=== PATIENT | male | born 1955 ===

== ENCOUNTER → 2018-02-01 | Outpatient (CLI) | payer OTHER ==
[~2018-02-01] MED LIST: AMIO200 PO; AMLO10 PO; ATEN100 PO; ATOR20 PO; AZIT500 PO; CALC.25 PO; CARV3.125 PO; CHLO25B PO; CINA30; CLOBET30L TOP; CLON.3TP TOP; CYCL10 PO; DOCU100 PO; DOXE50 PO; FISH1000 PO; FURO40 PO; Ferrous Sulfat325 M2 PO; HYDACE10B PO; LOSA25 PO; MAGOXI400 PO; Nephro-Vite RX1 EA PO; OXYC5 PO; POTCHL10ER PO; RANI150 PO; ROPI1 PO; SEVEC800 PO; SILD25T PO; TERA5 PO; ZOLP5 PO
[2018-02-01 12:35] LABS: LDL/HDL RATIO 0.9
[2018-02-01 12:36] LABS: Alanine Aminotransfer (ALT/SGP 26 U/L (12-78); Albumin, Blood 3.5 g/dL (3.4-5.0); Albumin/Globulin Ratio 0.9 (0.8-1.8); Alk Phos 86 U/L (50-136); Aspartate Aminotrans (AST/SGOT 17 U/L (12-37); Bilirubin, Direct <0.1 mg/dL (0.0-0.3); CHOL/HDL RATIO 3.1; Cholesterol 107 mg/dL (50-200); HDL Cholesterol 35 mg/dL (>39); Low Density Lipoprotein Chol 32 mg/dL (0-110); Total Protein, Blood 7.5 g/dL (6.4-8.2); Triglycerides 199 mg/dL (30-160); Very Low Density Lipoprot Chol 39 mg/dL (6-32)
[2018-02-01 13:01] LABS: Bilirubin, Indirect Unable to Calculate mg/dL (0.1-0.7); Bilirubin, Total 0.4 mg/dL (0.1-1.0)
== END | disposition home or self-care (01) ==
LOC: LAB DAV 09:46
PROVIDERS: Internal Medicine Nephrology
DX: E78.5 Hyperlipidemia, unspecified (principal)
CPT/HCPCS: 80061; 80076

== ENCOUNTER 2019-06-16 09:37 | Observation (INO) | payer OTHER ==
[~2019-06-16] VITALS: Ht 167.6 cm; Wt 83.9 kg
[~2019-06-16 09:37] MED LIST changes: -ATOR20 PO; -CARV3.125 PO; +CARV6.25 PO; +Lipitor20 MG PO; -Nephro-Vite RX1 EA PO; -RANI150 PO; +RENAL VITAMIN0.8 MG PO; +ZOLP10 PO; -ZOLP5 PO; +Zantac150 MG PO
[2019-06-16 10:27] LABS: BASOPHILS ABSOLUTE AUTO 0.04 K/mm3 (0.00-0.23); BASOPHILS PERCENT AUTO 1 % (0-2); EOSINOPHILS ABSOLUTE AUTO 0.21 K/mm3 (0.00-0.68); EOSINOPHILS PERCENT AUTO 3 % (0-6); Hemoglobin 11.9 g/dL (13.5-17.5); IMMATURE GRAN ABSOLUTE AUTO 0.02 K/mm3 (0.00-0.10); IMMATURE GRAN PERCENT AUTO 0 % (0-1); LYMPHOCYTES ABSOLUTE AUTO 1.32 K/mm3 (0.84-5.20); LYMPHOCYTES PERCENT AUTO 19 % (21-46); MONOCYTES ABSOLUTE AUTO 0.74 K/mm3 (0.16-1.47); MONOCYTES PERCENT AUTO 11 % (4-13); Mean Corpuscular HGB 32.1 pg (26.0-34.0); Mean Corpuscular HGB Conc 31.3 g/dL (31.5-36.5); Mean Corpuscular Volume 102 fL (80-100); Mean Platelet Volume 9.9 fL (9.1-12.4); NEUTROPHILS ABSOLUTE AUTO 4.49 K/mm3 (1.96-9.15); NEUTROPHILS PERCENT AUTO 66 % (41-73); Platelet Count 171 K/mm3 (150-400); RDW Coefficient Variation 15.6 % (11.7-14.2); RDW Standard Deviation 58.8 fL (35.1-46.3); Red Blood Cell Count 3.71 M/mm3 (4.30-5.90); White Blood Cell Count 6.82 K/mm3 (4.00-11.30)
[2019-06-16 10:52] LABS: Troponin I 0.029 ng/mL (0.000-0.040)
[2019-06-16 10:55] LABS: Albumin, Blood 3.5 g/dL (3.4-5.0); Albumin/Globulin Ratio 0.9 (0.8-1.8); Bilirubin, Total 0.7 mg/dL (0.1-1.0); Bun/Creatinine Ratio 8.6 (12.0-20.0); Creatinine, Blood 9.08 mg/dL (0.60-1.20); Globulin, Blood 4.1 g/dL (2.2-4.0); Potassium, Blood 6.5 mmol/L (3.5-5.5); Total Protein, Blood 7.6 g/dL (6.4-8.2)
[2019-06-16] MEDS ORDERED: ALBU90OI61 INH (13:03)
[2019-06-16] MEDS ORDERED: ALPR.5 PO (13:04)
[2019-06-16] MEDS ORDERED: Aspirin EC81 MG PO (13:04)
[2019-06-16] MEDS ORDERED: Flonase 0.05% N16 GM (13:06)
[2019-06-16] MEDS ORDERED: ANTI-ITCH LOTI222 ML TOP (13:06)
[2019-06-16] MEDS ORDERED: MIDO5 PO (13:08)
[2019-06-16] MEDS ORDERED: ONDA4 PO (13:09)
[2019-06-16] MEDS ORDERED: Mirapex0.25 MG PO (13:09)
[2019-06-16] MEDS ORDERED: Vitamin B-650 MG PO (13:09)
[2019-06-16] MEDS ORDERED: Cialis5 MG PO (13:11)
[2019-06-16] MEDS ORDERED: GABA300 PO (13:52)
[2019-06-16 15:57] LABS: Bun/Creatinine Ratio 8.8 (12.0-20.0); Calcium, Blood 8.4 mg/dL (8.5-10.1); Creatinine, Blood 9.58 mg/dL (0.60-1.20); Potassium, Blood 5.7 mmol/L (3.5-5.5)
--- NOTE | 2019-06-16 16:59 | NUR ---
SHIFT SUMMARY- PT NEW ADMIT THIS AFTERNOON. PT AXO X4. PT DENIES PAIN. DENIES SOB. RESP E/U ON RA. DENIES N/V. NSR AT 85 PER PCU FLOOR WORKER TRANSFER BAY. INDEPENDENT IN THE ROOM. NOTIFIED DR. HANEY OF PT'S BP OF 164/104 AND THAT PT REPORTS HE HAS NOT TAKEN ANY OF HIS MEDS TODAY. MEDS GIVEN PER EMAR. WILL CONTINUE TO MONITOR. NOTIFIED DR. HANEY PT REPORTS HE TAKES PO 600MG GABAPENTIN BID AND 0.25 MG PO MIRAPEX BID AND IT IS NOT ON PT'S EMAR. DR. HANEY SAID OK TO ORDER PT'S HOME MEDS. INDEPENDENT IN THE ROOM. NO OTHER SIGNIFICANT CHANGES THIS SHIFT.
[2019-06-17 05:32] LABS: BASOPHILS ABSOLUTE AUTO 0.05 K/mm3 (0.00-0.23); BASOPHILS PERCENT AUTO 1 % (0-2); EOSINOPHILS ABSOLUTE AUTO 0.21 K/mm3 (0.00-0.68); EOSINOPHILS PERCENT AUTO 4 % (0-6); Hematocrit 34.2 % (37.0-53.0); Hemoglobin 10.7 g/dL (13.5-17.5); IMMATURE GRAN ABSOLUTE AUTO 0.02 K/mm3 (0.00-0.10); IMMATURE GRAN PERCENT AUTO 0 % (0-1); LYMPHOCYTES ABSOLUTE AUTO 1.27 K/mm3 (0.84-5.20); LYMPHOCYTES PERCENT AUTO 23 % (21-46); MONOCYTES ABSOLUTE AUTO 0.46 K/mm3 (0.16-1.47); MONOCYTES PERCENT AUTO 8 % (4-13); Mean Corpuscular HGB 31.5 pg (26.0-34.0); Mean Corpuscular HGB Conc 31.3 g/dL (31.5-36.5); Mean Corpuscular Volume 101 fL (80-100); Mean Platelet Volume 10.2 fL (9.1-12.4); NEUTROPHILS ABSOLUTE AUTO 3.55 K/mm3 (1.96-9.15); NEUTROPHILS PERCENT AUTO 64 % (41-73); Platelet Count 188 K/mm3 (150-400); RDW Coefficient Variation 15.3 % (11.7-14.2); RDW Standard Deviation 56.7 fL (35.1-46.3); White Blood Cell Count 5.56 K/mm3 (4.00-11.30)
[2019-06-17 05:57] LABS: Magnesium, Blood 2.6 mg/dL (1.6-2.4)
[2019-06-17 06:05] LABS: Albumin, Blood 3.3 g/dL (3.4-5.0); Albumin/Globulin Ratio 0.8 (0.8-1.8); Bilirubin, Total 0.7 mg/dL (0.1-1.0); Bun/Creatinine Ratio 9.4 (12.0-20.0); Creatinine, Blood 10.4 mg/dL (0.60-1.20); Globulin, Blood 3.9 g/dL (2.2-4.0); Potassium, Blood 5.9 mmol/L (3.5-5.5); Total Protein, Blood 7.2 g/dL (6.4-8.2)
--- NOTE | 2019-06-17 06:36 | NUR ---
SHIFT SUMMARY: PATIENT WAS VERY PLEASANT AND COOPERATIVE. HE DID NOT SLEEP IN FACT STAYED UP PLAYING ON HIS PHONE ALL NIGHT. HE HAD NO COMPLAINTS OR CHANGES. MEDS WERE GIVEN PER EMAR. DR. BATEMAN CAME TO VISIT HIM AROUND MIDNIGHT. HE ORDERED TWO NEW MEDS WHICH WERE GIVEN STAT, NO CHANGES AFTERWARDS. PATIENTS DOG DID WELL ALL NIGHT WELL, NO PROBLEMS. WILL REPORT TO DAY SHIFT RN.
--- NOTE | 2019-06-17 08:00 | NUR ---
PT PLEASANT COOP A/O. DENIES PAIN. READY TO GO FOR DAYSURG TO GET FISTULA UNBLOCKED. FISTULA IN UPPER ARM, PT STATES CLOTTED. 5 YRS PRIOR. NO TRILL. FUSTULA IN LOW ARM IS ONE DR TO UNBLOCK. NO TRILL NOTED. H/R REG, NO MURMER NOTED. PER TELE S TACH AT 104. LUNGS CLEAR, RESP EASY, UNLABORED. ON R/A. BT X4 LAST BM YEST. PT OLIGURIC. ON DIALYSIS. IS INDEPENDANT IN ROOM. BED IN LOW POSITION, CALL LITE IN REACH, CALLS APPROP. PT HAS GUIDE DOG IN ROOM ON BED.
--- NOTE | 2019-06-17 10:00 | NUR ---
CALLED DR CERVANTES. HE DR TO DO FISTULA DECLOTTING. STATES PROB 2-4PM TODAY. KEEP NPO. RELAYED TO PT.
--- NOTE | 2019-06-17 18:09 | NUR ---
1718 PT OUT TO SURG FOR FISTULA. CALLED JERE BERNAL RN AT [phone]
--- NOTE | 2019-06-17 18:39 | NUR ---
PT HAS BEEN WAITING FOR DAY SURG TO DECLOT THE FISTULA ALL DAY. WENT TO [facility] AT 1715. JERE METABOLIC SPECIALIST CALLED AND ADVISED WHEN LEFT. HE TO COME GIVE PT DIALYSIS UPON HIS RETURN. NO OTHER CONCERNS AT THIS TIME.
--- NOTE | 2019-06-17 19:52 | NUR ---
HD 1:1 NON-ROUTINE HOURS TREATMENT DUE TO LATE AFTERNOON THROMBECTOMY OF CLOTTED AV GRAFT AND CONCURRENT 5.9 K+.
[2019-06-18 05:09] LABS: Hemoglobin 10.4 g/dL (13.5-17.5)
[2019-06-18 05:31] LABS: Magnesium, Blood 2.5 mg/dL (1.6-2.4)
[2019-06-18 05:44] LABS: Albumin, Blood 3.1 g/dL (3.4-5.0); Anion Gap 10 mmol/L (6-16); Blood Urea Nitrogen 77 mg/dL (8-24); Bun/Creatinine Ratio 8.2 (12.0-20.0); CO2, Blood 27 mmol/L (21-32); Calcium, Blood 8.3 mg/dL (8.5-10.1); Chloride, Blood 102 mmol/L (98-108); Creatinine, Blood 9.36 mg/dL (0.60-1.20); Glomerular Filtration Rate 6 (60-); Glucose, Blood 93 mg/dL (70-99); Phosphorus, Blood 5.4 mg/dL (2.5-4.9); Sodium, Blood 139 mmol/L (136-145)
--- NOTE | 2019-06-18 07:35 | NUR ---
SHIFT SUMMARY: FAB GOT BACK AT SHIFT CHANGE FROM HIS SURGERY. THEY WERE ABLE TO GET BOTH GRAFTS UNPLUGGED. PROCEDURE WAS GOOD AND HIS RECOVERY WAS QUICK. JERE FROM [facility] WAS PRESENT ON ARRIVAL TO ROOM AND GOT HIM STARTED ON DIALYSIS. HE WAS GIVEN HIS DINNER AND LUNCH TRAY AT WHICH HE ATE ALL OF IT. HIS BLOOD PRESSURE IMPROVED THROUGHOUT THE DIALYSIS TREATMENT. HE HAD DIALYSIS FOR 21/2 HOURS WITH NO PROBLEMS. JERE REMOVED THE STITCHES FROM HIS GRAFT AND COVERED WITH STERI STRIP PER OR ORDERS. MEDS WERE GIVEN PER EMAR. HE HAD NO ACUTE CHANGES AFTERWARDS AND SLEPT WELL AFTERWARDS. VS REMAINED STABLE. GAVE REPORT TO DAY SHIFT RN.
[2019-06-18] MEDS ORDERED: SEVEC800 PO (11:38)
--- NOTE | 2019-06-18 11:57 | NUR ---
DISCHARGE- DISCHARGE INSTRUCTIONS REVIEWED WITH PT. IV DC'D INTACT. PT REQUESTING [facility] UPON DISCHARGE. [facility], [facility] MICHAEL KLEIN, [place] WILL CALL TO SCHEDULE A F/U APPOINTMENT. [facility] NESTOR CONKLIN AUTHORIZED BY DIRECTOR WORKFORCE MANAGEMENT JEREMIAS DUE TO PT'S CAR BEING AT [facility]. PT TO D/C TO [facility] FOR DIALYSIS TODAY, CONFIRMED WITH [facility] PT HAS A CHAIR TO BE DIALYZED. AWAITING TAXI AT THIS TIME.
--- NOTE | 2019-06-18 12:10 | NUR ---
PT D/C'S AT 1210, ESCORTED OUT VIA W/C TO [facility] TO D/C TO [facility].
[2019-06-25] MEDS ORDERED: Bumetanide2 MG PO (15:41)
[2019-06-26] MEDS ORDERED: MIDO5 (11:32)
== END 2019-06-18 12:11 | disposition home health service (06) ==
LOC: ER 09:37 → MEDS 09:38
PROVIDERS: Emergency Medicine; Internal Medicine Nephrology; ADMIT Internal Medicine
DX: T82.868A Thrombosis due to vascular prosthetic devices, implants and grafts, initial encounter (principal); I13.2 Hypertensive heart and chronic kidney disease with heart failure and with stage 5 chronic kidney disease, or end stage renal disease; N18.6 End stage renal disease; E78.5 Hyperlipidemia, unspecified; G89.29 Other chronic pain; E87.5 Hyperkalemia; R55 Syncope and collapse; G47.00 Insomnia, unspecified; Z99.2 Dependence on renal dialysis
CPT/HCPCS: 36415; 36905; 71045; 80048; 80053; 80069; 82947; 83735; 84132; 84484; 85014; 85018; 85025; 93005; 93010; 96372; 96374; 96375; 97116; 97162; 99152; 99153; 99285-25; C1725; C1757; C1769; C1887; C1894; G0257; G0378; J0610; J1644; J1815; J2250; J3010; J7030; J7040; J7799; Q9967

== ENCOUNTER → 2019-08-20 | Outpatient (CLI) | payer SELFPAY ==
[~2019-08-20] MED LIST changes: +ALBU90OI61 INH; +ALPR.5 PO; +ANTI-ITCH LOTI222 ML TOP; +Aspirin EC81 MG PO; +Bumetanide2 MG PO; +Cialis5 MG PO; +Flonase 0.05% N16 GM; +GABA300 PO; +MIDO5; +MIDO5 PO; +Mirapex0.25 MG PO; +ONDA4 PO; +Vitamin B-650 MG PO
== END | disposition home or self-care (01) ==
LOC: LAB DAV 07:55
DX: M10.9 Gout, unspecified (principal)
CPT/HCPCS: 84550

== ENCOUNTER → 2020-01-28 | Outpatient (CLI) | payer OTHER ==
[~2020-01-28] MED LIST changes: +SOMA350 MG PO; +Sensipar90 MG PO
[2020-01-28 08:28] LABS: BASOPHILS ABSOLUTE AUTO 0.04 K/mm3 (0.00-0.23); BASOPHILS PERCENT AUTO 1 % (0-2); EOSINOPHILS ABSOLUTE AUTO 0.21 K/mm3 (0.00-0.68); EOSINOPHILS PERCENT AUTO 3 % (0-6); Hematocrit 32.8 % (37.0-53.0); Hemoglobin 10.3 g/dL (13.5-17.5); IMMATURE GRAN ABSOLUTE AUTO 0.02 K/mm3 (0.00-0.10); IMMATURE GRAN PERCENT AUTO 0 % (0-1); LYMPHOCYTES ABSOLUTE AUTO 1.52 K/mm3 (0.84-5.20); LYMPHOCYTES PERCENT AUTO 22 % (21-46); MONOCYTES ABSOLUTE AUTO 0.56 K/mm3 (0.16-1.47); MONOCYTES PERCENT AUTO 8 % (4-13); Mean Corpuscular HGB 31.4 pg (26.0-34.0); Mean Corpuscular HGB Conc 31.4 g/dL (31.5-36.5); Mean Corpuscular Volume 100 fL (80-100); Mean Platelet Volume 9.8 fL (9.1-12.4); NEUTROPHILS ABSOLUTE AUTO 4.46 K/mm3 (1.96-9.15); NEUTROPHILS PERCENT AUTO 66 % (41-73); Platelet Count 170 K/mm3 (150-400); RDW Coefficient Variation 14.8 % (11.7-14.2); RDW Standard Deviation 53.7 fL (35.1-46.3); Red Blood Cell Count 3.28 M/mm3 (4.30-5.90); White Blood Cell Count 6.81 K/mm3 (4.00-11.30)
[2020-01-28 08:40] LABS: International Normalized Ratio 0.99; Prothrombin Time Results 10.6 Sec (9.7-11.5)
[2020-01-28 09:10] LABS: Bun/Creatinine Ratio 5.9 (12.0-20.0); Calcium, Blood 8.6 mg/dL (8.5-10.1); Creatinine, Blood 10.1 mg/dL (0.60-1.20); Potassium, Blood 4.6 mmol/L (3.5-5.5)
== END | disposition home or self-care (01) ==
LOC: LAB 07:00 → LAB SHORT 07:00
PROVIDERS: Radiology Diagnostic Radiology
DX: Z01.818 Encounter for other preprocedural examination (principal); I70.213 Atherosclerosis of native arteries of extremities with intermittent claudication, bilateral legs; I10 Essential (primary) hypertension
CPT/HCPCS: 80048; 85025; 85610

== ENCOUNTER 2020-01-29 06:13 | Day surgery (SDC) | payer OTHER ==
[~2020-01-29] VITALS: Ht 167.6 cm; Wt 100.0 kg
--- NOTE | 2020-01-29 10:35 | NUR ---
Pt received from [facility]und[facility] MALLOY pt is awake with service dog Stew on his bed. Pt repostion for comfort slight raise in right groin site due to previous hematoma. Pt is cooperative. Pt reposition on right side for comfort.
--- NOTE | 2020-01-29 11:40 | NUR ---
Pt medicated with xanax for slight anxiety of 3 out of 5. Orders received from Dr. Werner pt right femoral site normal pt starting to have back pain. Pt has been reposition by staff for comfort. Stew service dog on bed with patient.
--- NOTE | 2020-01-29 11:57 | NUR ---
Pt medicated with rx for pain lower back of 04/28. Orders received from doctor Alphonso for pain parameter. Pt finished breakfast he has a hl iv of normal saline.
--- NOTE | 2020-01-29 13:48 | NUR ---
Pt up marko well. Pt stable in recliner with Stew the service dog waiting for ride at 1500. Pt denies pain at this time. Right groin dressing with a spot of blood no change in site. Pt assisted in dressing. Pt reviewed all discharge instructions. Pt will have second procedure in February. Sbar to Rhiannon Oviedo RN. Pt in holding pattern for ride.
--- NOTE | 2020-01-29 13:59 | NUR ---
Lunch served, pt left fistula patent good bruit and thril.
--- NOTE | 2020-01-29 15:13 | NUR ---
1500 PATIENT HAS BEEN WAITING ON RIDE TO ARRIVE. PATIENT TAKEN BY WHEELCHAIR TO THE HOSPITAL ENTRANCE AND RIDE PICKED HIMUP THERE TO TAKE HIM HOME. DISCHARGE INSTRUCTIONS IN HAND AND ALL BELONGINGS GATHERED AND TAKEN WITH PATIENT. DISCHARGED HOME.
== END 2020-01-29 16:31 | disposition home or self-care (01) ==
LOC: MHTC 06:13
DX: I70.213 Atherosclerosis of native arteries of extremities with intermittent claudication, bilateral legs (principal); I10 Essential (primary) hypertension; E78.5 Hyperlipidemia, unspecified; F32.9 Major depressive disorder, single episode, unspecified; I25.10 Atherosclerotic heart disease of native coronary artery without angina pectoris; F41.9 Anxiety disorder, unspecified; Z79.899 Other long term (current) drug therapy; Z88.5 Allergy status to narcotic agent; Z79.82 Long term (current) use of aspirin
CPT/HCPCS: 37225; 37228; 75625; 75716; 75774; 85347; 99152; 99153; C1724; C1760; C1769; C1884; C1887; C1894; C2623; J0360; J1644; J2250; J3010; J7030; Q9967

== ENCOUNTER 2020-05-04 05:28 | Day surgery (SDC) | payer OTHER ==
[~2020-05-04] VITALS: Ht 167.6 cm; Wt 101.0 kg
[~2020-05-04 05:28] MED LIST changes: +TADA10TA PO
[2020-05-04] MEDS ORDERED: CLOP75 PO (12:58)
--- NOTE | 2020-05-04 15:48 | NUR ---
DISCHARGE PT REMAINED A&OX3 AND STATED PAIN IN THE LOWER BACK AND R CALF AREA. REPOSITIONING, HEAT PACK AND MEDICATIONS ( PER JAN) WERE USED TO HELP PROVIDE COMFORT FOR THE PT. IV DC'D WITH CANULA IN TACT. PT ABLE TO DRESS SELF WITH LITTLE ASSISTANCE. -NEW PRESCRIPTION FAXED TO [facility] WITH PROCEDURE NOTES. DISCHARGE PAPERWORK GONE OVER WITH PT. PT VERBALLY STATED THE UNDERSTANDING OF THE DISCHARGE EDUCATION AND DENIED ANY QUESTIONS AT THIS TIME. PT WHEELED OUT BY ASH Hay RN.
== END 2020-05-04 16:30 | disposition home or self-care (01) ==
LOC: MHTC 05:28
DX: I70.213 Atherosclerosis of native arteries of extremities with intermittent claudication, bilateral legs (principal); I10 Essential (primary) hypertension; E78.5 Hyperlipidemia, unspecified; F32.9 Major depressive disorder, single episode, unspecified; F41.9 Anxiety disorder, unspecified; Z88.5 Allergy status to narcotic agent; Z79.82 Long term (current) use of aspirin; Z99.2 Dependence on renal dialysis; Z79.899 Other long term (current) drug therapy; I25.10 Atherosclerotic heart disease of native coronary artery without angina pectoris
CPT/HCPCS: 37221; 37224; 37228; 75716; 75774; 85347; 99152; 99153; C1725; C1757; C1760; C1769; C1887; C1894; C2623; J0360; J1644; J2250; J3010; J7030; Q9967

== ENCOUNTER → 2021-10-10 | Outpatient (CLI) | payer OTHER ==
[~2021-10-10] MED LIST changes: +CARB200 PO; +CLOP75 PO; +MECL12.5 PO; +Vitamin D1000 UNI1 PO; +ZOLPIDEM TART1.75 MG SL; +[UNRECOGNIZED DRUG - OTHER]
[2021-10-10 16:12] LABS: Hematocrit 37.2 % (37.0-53.0); Mean Corpuscular HGB 30.7 pg (26.0-34.0); Mean Corpuscular HGB Conc 32.3 g/dL (31.5-36.5); Mean Corpuscular Volume 95 fL (80-100); Mean Platelet Volume 10.1 fL (9.1-12.4); Platelet Count 231 K/mm3 (150-400); RDW Coefficient Variation 13.8 % (11.7-14.2); RDW Standard Deviation 48.3 fL (35.1-46.3); Red Blood Cell Count 3.91 M/mm3 (4.30-5.90); White Blood Cell Count 4.51 K/mm3 (4.00-11.30)
[2021-10-10 16:28] LABS: International Normalized Ratio 0.98; Prothrombin Time Results 10.3 Sec (9.7-11.5)
[2021-10-10 16:52] LABS: BASOPHILS ABSOLUTE MAN 0.09 K/mm3 (0.00-0.23); BASOPHILS PERCENT MAN 2 % (0-2); EOSINOPHILS ABSOLUTE MAN 0.22 K/mm3 (0.00-0.68); EOSINOPHILS PERCENT MAN 5 % (0-6); LYMPHOCYTES ABSOLUTE MAN 0.81 K/mm3 (0.84-5.20); LYMPHOCYTES PERCENT MAN 18 % (21-46); MONOCYTES ABSOLUTE MAN 0.18 K/mm3 (0.16-1.47); MONOCYTES PERCENT MAN 4 % (4-13); SEG NEUTROPHILS PERCENT MAN 71 % (41-73); TOTAL CELLS COUNTED 100
== END ==
LOC: LAB SHORT 16:05
PROVIDERS: Physician Assistant
DX: T82.858A Stenosis of other vascular prosthetic devices, implants and grafts, initial encounter (principal); Z88.5 Allergy status to narcotic agent; Z88.6 Allergy status to analgesic agent; Z88.8 Allergy status to other drugs, medicaments and biological substances
CPT/HCPCS: 85007; 85027; 85610

== ENCOUNTER 2021-10-11 06:23 | Day surgery (SDC) | payer OTHER ==
[~2021-10-11] VITALS: Ht 167.6 cm; Wt 94.8 kg
--- NOTE | 2021-10-11 09:33 | NUR ---
PT RETURNED BACK TO RECOVERY ROOM IN BED. LEFT FISTULAL SITE ACCESS STABLE WITH TWO POLYMEM DRESSINGS OVER ACCESS SITES; NO HEMATOMA, NO BLEEDING SOFT AND NONTENDER - THRILL ASCULATED.
--- NOTE | 2021-10-11 10:29 | NUR ---
DR CERVANTES IN ROOM TO SEE PT.
--- NOTE | 2021-10-11 11:34 | NUR ---
PURSE-STRING SUTURES REMOVED FROM FISTULAGRAM SITES AND NEW POLYMEMS PLACED OVER SITES. SITES STABLE AND ARE SOFT NON-TENDER WITH NO HEMATOMA AND VERY SLIGHT BLEEDING. DISCHARGE INSTRUCTIONS REVIEWED AND ALL QUESTIONS ANSWERED.
--- NOTE | 2021-10-11 11:48 | NUR ---
20 G IV DISCONTINUED FROM RIGHT WRIST WITH INTACT CANNULA.
--- NOTE | 2021-10-11 12:04 | NUR ---
LEFT FISTULA SITES NO HEMATOMA, NO BLEEDING SOFT AND NON-TENDER. PT ESCORTED OUT VIA WHEELCHAIR ESCORT.
== END 2021-10-11 12:00 | disposition home or self-care (01) ==
LOC: MHTC 06:23
DX: T82.858A Stenosis of other vascular prosthetic devices, implants and grafts, initial encounter (principal); I73.9 Peripheral vascular disease, unspecified; I12.0 Hypertensive chronic kidney disease with stage 5 chronic kidney disease or end stage renal disease; N18.6 End stage renal disease; Z99.2 Dependence on renal dialysis; Y84.8 Other medical procedures as the cause of abnormal reaction of the patient, or of later complication, without mention of misadventure at the time of the procedure; Z87.891 Personal history of nicotine dependence; Z88.5 Allergy status to narcotic agent; Z88.8 Allergy status to other drugs, medicaments and biological substances
CPT/HCPCS: 76937; 99152; 99153; C1725; C1769; C1887; C1894; J1644; J2250; J3010; J7030; J7050; Q9967

== ENCOUNTER 2021-11-28 08:47 | Inpatient (IN) | payer OTHER ==
[~2021-11-28] VITALS: Ht 167.6 cm; Wt 101.5 kg
[2021-11-28 10:20] LABS: BASOPHILS ABSOLUTE AUTO 0.06 K/mm3 (0.00-0.23); BASOPHILS PERCENT AUTO 1 % (0-2); EOSINOPHILS ABSOLUTE AUTO 0.21 K/mm3 (0.00-0.68); EOSINOPHILS PERCENT AUTO 3 % (0-6); Hematocrit 36.1 % (37.0-53.0); IMMATURE GRAN ABSOLUTE AUTO 0.06 K/mm3 (0.00-0.10); IMMATURE GRAN PERCENT AUTO 1 % (0-1); LYMPHOCYTES ABSOLUTE AUTO 0.98 K/mm3 (0.84-5.20); LYMPHOCYTES PERCENT AUTO 15 % (21-46); MONOCYTES ABSOLUTE AUTO 0.44 K/mm3 (0.16-1.47); MONOCYTES PERCENT AUTO 7 % (4-13); Mean Corpuscular HGB 31.4 pg (26.0-34.0); Mean Corpuscular HGB Conc 30.5 g/dL (31.5-36.5); Mean Corpuscular Volume 103 fL (80-100); Mean Platelet Volume 11.7 fL (9.1-12.4); NEUTROPHILS PERCENT AUTO 73 % (41-73); Platelet Count 121 K/mm3 (150-400); RDW Coefficient Variation 16.6 % (11.7-14.2); RDW Standard Deviation 62.8 fL (35.1-46.3); White Blood Cell Count 6.45 K/mm3 (4.00-11.30)
[2021-11-28 10:42] LABS: Influenza A, PCR NEGATIVE (NEGATIVE); Influenza B, PCR NEGATIVE (NEGATIVE); Resp Syncytial Virus, PCR NEGATIVE (NEGATIVE); SARS-Cov-2 (COVID-19) PCR, MMC NEGATIVE (NEGATIVE)
[2021-11-28 10:42] LABS: Bun/Creatinine Ratio 8.5 (12.0-20.0); Calcium, Blood 8.6 mg/dL (8.5-10.1); Creatinine, Blood 7.72 mg/dL (0.60-1.20); Magnesium, Blood 2.1 mg/dL (1.6-2.4); Potassium, Blood 5.8 mmol/L (3.5-5.5)
--- NOTE | 2021-11-28 17:35 | NUR ---
SHIFT SUMMARY; ER ADMIT IN LATE AFTERNOON. COMES TO ROOM VIA WHEELCHAIR FROM ED. TRANSFERS SELF TO BED. A/A/0X4. NPO AFTER MIDNIGHT FOR LEFT ARM FISTULA PROCEDURE TOMORROW. NO PALPABLE FLOW, US COMPLETE IN ED. DINNER TRAY PROVIDED, WILL CONTINUE TO MONITOR AND TREAT UNTIL CHANGE OF SHIFT.
[2021-11-29 01:18] LABS: BASOPHILS ABSOLUTE AUTO 0.05 K/mm3 (0.00-0.23); BASOPHILS PERCENT AUTO 1 % (0-2); EOSINOPHILS PERCENT AUTO 4 % (0-6); Hematocrit 29.4 % (37.0-53.0); Hemoglobin 9.3 g/dL (13.5-17.5); IMMATURE GRAN ABSOLUTE AUTO 0.03 K/mm3 (0.00-0.10); IMMATURE GRAN PERCENT AUTO 1 % (0-1); LYMPHOCYTES ABSOLUTE AUTO 1.03 K/mm3 (0.84-5.20); LYMPHOCYTES PERCENT AUTO 19 % (21-46); MONOCYTES PERCENT AUTO 9 % (4-13); Mean Corpuscular HGB 31.5 pg (26.0-34.0); Mean Corpuscular HGB Conc 31.6 g/dL (31.5-36.5); Mean Corpuscular Volume 100 fL (80-100); Mean Platelet Volume 11.5 fL (9.1-12.4); NEUTROPHILS ABSOLUTE AUTO 3.54 K/mm3 (1.96-9.15); NEUTROPHILS PERCENT AUTO 66 % (41-73); Platelet Count 122 K/mm3 (150-400); RDW Coefficient Variation 16.3 % (11.7-14.2); RDW Standard Deviation 59.4 fL (35.1-46.3); Red Blood Cell Count 2.95 M/mm3 (4.30-5.90); White Blood Cell Count 5.35 K/mm3 (4.00-11.30)
[2021-11-29 01:44] LABS: Magnesium, Blood 1.9 mg/dL (1.6-2.4)
[2021-11-29 01:54] LABS: Albumin, Blood 2.6 g/dL (3.4-5.0); Albumin/Globulin Ratio 0.7 (0.8-1.8); Bilirubin, Total 0.5 mg/dL (0.1-1.0); Bun/Creatinine Ratio 8.8 (12.0-20.0); Calcium, Blood 8.2 mg/dL (8.5-10.1); Creatinine, Blood 8.74 mg/dL (0.60-1.20); Globulin, Blood 3.6 g/dL (2.2-4.0); Phosphorus, Blood 6.5 mg/dL (2.5-4.9); Potassium, Blood 4.7 mmol/L (3.5-5.5); Total Protein, Blood 6.2 g/dL (6.4-8.2)
--- NOTE | 2021-11-29 02:18 | NUR ---
CRITICAL VALUE: RECEIVED FROM HELLNE JOHNSON AND READBACK. CREATININE UP FROM 7.72 TO 8.74. DISCUSSED WITH FLOOR FINISHER DAN AND PRECEPTOR CLAY LOPEZ. EXPECTED VALUE PATIENT HAS NOT HAD DIALYSIS IN A WEEK. WILL REPORT TO DR. BATEMAN IN AM.
--- NOTE | 2021-11-29 05:22 | NUR ---
SHIFT SUMMARY: PATIENT ADMITTED FROM ED WITH CLOGGED FISTULA. PATIENT A&O X4, SBA IN ROOM, VS STABLE, RA, PLEASANT AND COOPERATIVE WITH CARE. SERVICE DOG, JUAN PABLO, APPROVED TO BE AT BEDSIDE AND IS VERY POLITE - PATIENT TO PROVIDE ALL CARE FOR DOG. PATIENT NPO AT MIDNIGHT IN PREPARATION FOR THROMBECTOMY OF FISTULA TODAY. CREATININE IS 8.74, JEWELRY BENCH WORKER NOTIFIED, WILL REPORT TO DR. BATEMAN WHEN HE'S ON UNIT. WILL CONTINUE TO MONITOR AND REPORT TO DAY RN.
--- NOTE | 2021-11-29 18:07 | NUR ---
PT SUMMARY: PT CURRENTLY IN THE [facility]ART CENTER AT THIS TIME FOR THROMBECTOMY OF LEFT ARM FISTULA. NO ACUTE CHANGE FOR THE SHIFT. VITALS HAS BEEN STABLE. ON ROOMAIR, AFEBRILE. DENIES ANY PAIN FOR THE SHIFT. ALERT AND ORIENTED X4, WAS UP IN THE WHEELCHAIR MOST OF THE SHIFT, GETS UP AND MOVE AROUND INDEPENDENTLY, SERVICE DOG REMAINS IN THE ROOM ALL SHIFT WITH NO ISSUES. HOLTER MONITOR ORDERED FOR TOMORROW TO BE PLACED BEFORE PT DISCHARGES PER PT'S REQUESTS. DIALYSIS NURSE TO RUN PT IN THE MORNING AT 10A. NO OTHER ISSUES REPORTED, AWAITING FOR PT TO COME BACK FROM PROCEDURE. WILL REPORT TO ONCOMING SHIFT.
--- NOTE | 2021-11-29 18:59 | NUR ---
PT ARRIVED BACK IN THE ROOM FROM THE [facility]ART CENTER VITALS BP SYSTOLIC 130'S, HRR SR AT 80'S, SATS ABOVE 92% ON RA. LEFT FISTULA HAS 3 SPOTS DRESSINGS ON INTACT BRUIT AND THRILL POSITIVE, PER REPORT PT HAS TO RUN ON DIALYSIS SOON POSSIBLE TO KEEP FLOW GOING ON THE FISTULA, VERIFIED WITH DIALYSIS NURSE PT TO RUN DIALYSIS AT 9A TOMORROW CHARGE NURSE AWARE. WILL REPORT TO ONCOMING NURSE
[2021-11-30 04:10] LABS: Hematocrit 27.4 % (37.0-53.0); Hemoglobin 8.8 g/dL (13.5-17.5)
[2021-11-30 04:43] LABS: Albumin, Blood 2.7 g/dL (3.4-5.0); Anion Gap 11 mmol/L (6-16); Blood Urea Nitrogen 89 mg/dL (8-24); Bun/Creatinine Ratio 8.7 (12.0-20.0); CO2, Blood 25 mmol/L (21-32); Calcium, Blood 7.8 mg/dL (8.5-10.1); Chloride, Blood 98 mmol/L (98-108); Glomerular Filtration Rate 5 (60-); Glucose, Blood 111 mg/dL (70-99); Phosphorus, Blood 8.4 mg/dL (2.5-4.9); Potassium, Blood 5.7 mmol/L (3.5-5.5); Sodium, Blood 134 mmol/L (136-145)
--- NOTE | 2021-11-30 05:56 | NUR ---
SHIFT SUMMARY: PATIENT A&O X4, DENIES CHEST PAIN OR SOB, VS STABLE T/O SHIFT. THROMBECTOMY SITES WNL X3 - SUTURES WERE REMOVED AND COVERED WITH DRESSING AT 2044 ON 11/29. PATIENT IS MORE EDEMATOUS THAN ON TUESDAY 11/28 AND IS ANXIOUS TO START DIALYSIS STATING, "I'M AT LEAST 25 LBS OVERWEIGHT NOW." CRITICAL VALUES RECEIVED FROM LAB REGARDING CREATININE (10.2) AND PHOSPHOROUS (8.4). POTASSIUM IS ALSO INCREASING AND CURRENTLY 5.7 - LAB DID NOT CALL CRITICAL ON THIS VALUE WILL ALERT DR. BATEMAN IN MORNING RE: LAB VALUES. PLAN FOR DIALYSIS AND POSSIBLE D/C TODAY. WILL CONTINUE TO MONITOR AND REPORT TO DAY RN.
[2021-11-30] MEDS ORDERED: ELIQUIS2.5 MG PO ×2 (11:20)
--- NOTE | 2021-11-30 15:40 | NUR ---
PT DISCHARGE TO HOME WITH DISCHARGE ORDERS. PT WAS DIALYZED TODAY 3100MLS OUT. NO ISSUES REPORTED WITH THE FISTULA, BRUIT AND THRILL POSITIVE ON LEFT FISTULA. VITALS HAS BEEN STABLE. DENIES PAIN, NO OTHER ISSUES REPORTED. ZIO PATCH PLACED BY THE HEART CENTER NURSE BEFORE DISCHARGE. ALL DISCHARGE INFORMATION WAS DISCLOSED. PRESCRIPTION SENT TO THE [facility]. FIRST DOSE OF ELIQUIS WAS GIVEN AND STARTED TODAY FOR THE SHIFT. ALL BELONGINGS SENT WITH THE PT, NO OTHER ISSUES ENCOUNTERED, PT SET UP TRANSPORTATION. PT ASSISTED FOR TRANSPORT VIA PERSONAL WHEELCHAIR. SERVICE DOG WITH HIM WELL
== END 2021-11-30 14:49 | disposition home or self-care (01) | DRG 270 ==
LOC: ER 08:47 → PCU 08:48 → ERHOLD 08:48 → PCU 16:17
PROVIDERS: Internal Medicine Nephrology; Nurse Practitioner Acute Care; Student in an Organized Health Care Education/Training Program; ADMIT Internal Medicine
PROC: X2C New Technology, Cardiovascular System, Extirpation (ICD-10-PCS; principal; 2021-11-29)
DX: T82.591A Other mechanical complication of surgically created arteriovenous shunt, initial encounter (principal); N18.6 End stage renal disease; I12.0 Hypertensive chronic kidney disease with stage 5 chronic kidney disease or end stage renal disease; E87.1 Hypo-osmolality and hyponatremia; G89.29 Other chronic pain; M54.9 Dorsalgia, unspecified; Y83.8 Other surgical procedures as the cause of abnormal reaction of the patient, or of later complication, without mention of misadventure at the time of the procedure; Z20.822 Contact with and (suspected) exposure to COVID-19; E78.5 Hyperlipidemia, unspecified; I73.9 Peripheral vascular disease, unspecified; G25.81 Restless legs syndrome; G47.00 Insomnia, unspecified; G47.33 Obstructive sleep apnea (adult) (pediatric); G89.4 Chronic pain syndrome; E66.01 Morbid (severe) obesity due to excess calories; F41.9 Anxiety disorder, unspecified; E83.39 Other disorders of phosphorus metabolism; E87.5 Hyperkalemia; I25.10 Atherosclerotic heart disease of native coronary artery without angina pectoris; Z99.2 Dependence on renal dialysis; Z95.1 Presence of aortocoronary bypass graft; Z88.5 Allergy status to narcotic agent; Z88.8 Allergy status to other drugs, medicaments and biological substances; Z98.890 Other specified postprocedural states; Z98.1 Arthrodesis status; Z68.35 Body mass index [BMI] 35.0-35.9, adult; Z79.82 Long term (current) use of aspirin; Z79.899 Other long term (current) drug therapy
CPT/HCPCS: 0241U; 36415; 71045; 76937; 80048; 80053; 80069; 83735; 84100; 84132; 84484; 85014; 85018; 85025; 93005; 93010; 93246; 93990; 96374; 96375; 99152; 99153; 99285-25; A9270; C1725; C1769; C1887; C1894; G0378; J0610; J0881; J1644; J1815; J2250; J3010; J7030; J7799; Q9967

== ENCOUNTER 2021-12-02 08:56 | Observation (INO) | payer OTHER ==
[~2021-12-02] VITALS: Ht 165.1 cm; Wt 90.7 kg
[~2021-12-02 08:56] MED LIST changes: +ELIQUIS2.5 MG PO
[2021-12-02 10:59] LABS: BASOPHILS ABSOLUTE AUTO 0.03 K/mm3 (0.00-0.23); BASOPHILS PERCENT AUTO 1 % (0-2); EOSINOPHILS ABSOLUTE AUTO 0.16 K/mm3 (0.00-0.68); EOSINOPHILS PERCENT AUTO 4 % (0-6); Hematocrit 26.8 % (37.0-53.0); Hemoglobin 8.4 g/dL (13.5-17.5); IMMATURE GRAN ABSOLUTE AUTO 0.02 K/mm3 (0.00-0.10); IMMATURE GRAN PERCENT AUTO 1 % (0-1); LYMPHOCYTES ABSOLUTE AUTO 0.91 K/mm3 (0.84-5.20); LYMPHOCYTES PERCENT AUTO 22 % (21-46); MONOCYTES PERCENT AUTO 15 % (4-13); Mean Corpuscular HGB 31.1 pg (26.0-34.0); Mean Corpuscular HGB Conc 31.3 g/dL (31.5-36.5); Mean Corpuscular Volume 99 fL (80-100); Mean Platelet Volume 11.2 fL (9.1-12.4); NEUTROPHILS ABSOLUTE AUTO 2.38 K/mm3 (1.96-9.15); NEUTROPHILS PERCENT AUTO 58 % (41-73); Platelet Count 122 K/mm3 (150-400); RDW Coefficient Variation 15.9 % (11.7-14.2); RDW Standard Deviation 57.2 fL (35.1-46.3)
[2021-12-02 11:16] LABS: International Normalized Ratio 1.09; Prothrombin Time Results 11.4 Sec (9.7-11.5)
[2021-12-02 11:17] LABS: Bun/Creatinine Ratio 7.7 (12.0-20.0); Calcium, Blood 8.2 mg/dL (8.5-10.1); Creatinine, Blood 6.78 mg/dL (0.60-1.20); Potassium, Blood 4.3 mmol/L (3.5-5.5)
[2021-12-02 11:35] LABS: Influenza A, PCR NEGATIVE (NEGATIVE); Influenza B, PCR NEGATIVE (NEGATIVE); Resp Syncytial Virus, PCR NEGATIVE (NEGATIVE); SARS-Cov-2 (COVID-19) PCR, MMC NEGATIVE (NEGATIVE)
--- NOTE | 2021-12-02 14:10 | NUR ---
PT TO RECOVERY ROOM POST PROCEDURE. PT IS DROWSY, BUT EASILY ROUSABLE AND ANSWERING QUESTIONS APPROPRIATELY; DENIES PAIN POST PROCEDURE. MONITOR SR 70'S, B/P 146/65, AFEBRILE, SPO2 95% RA. R CHEST-PERMCATH NO SWELLING/HEMATOMA, BIOPATCH AND TEGADERM DRSG INTACT.
--- NOTE | 2021-12-02 14:35 | NUR ---
PT DRESSED WITH MIN ASSISTANCE, SITE UNCHANGED; IV REMOVED-CANNULA INTACT.
--- NOTE | 2021-12-02 14:44 | NUR ---
PT RECEIVED DISCHARGE INSTRUCTIONS AND AFTER CARE INSTRUCTIONS; VERBALIZED GOOD UNDERSTANDING. PT BEING SENT STRAIGHT TO [facility]IALYS[facility], CONDITION STABLE.
== END 2021-12-02 15:30 | disposition home or self-care (01) ==
LOC: ER 08:56 → PCU 08:57 → ER 12:58 → PCU 15:30
PROVIDERS: Emergency Medicine; ADMIT Internal Medicine
DX: T82.868A Thrombosis due to vascular prosthetic devices, implants and grafts, initial encounter (principal); Y83.2 Surgical operation with anastomosis, bypass or graft as the cause of abnormal reaction of the patient, or of later complication, without mention of misadventure at the time of the procedure; I12.0 Hypertensive chronic kidney disease with stage 5 chronic kidney disease or end stage renal disease; N18.6 End stage renal disease; I25.10 Atherosclerotic heart disease of native coronary artery without angina pectoris; E78.5 Hyperlipidemia, unspecified; I73.9 Peripheral vascular disease, unspecified; Z79.01 Long term (current) use of anticoagulants; Z99.2 Dependence on renal dialysis; Z88.8 Allergy status to other drugs, medicaments and biological substances; Z88.5 Allergy status to narcotic agent; Z20.822 Contact with and (suspected) exposure to COVID-19
CPT/HCPCS: 0241U; 36415; 36558; 76937; 77001; 80048; 85025; 85610; 85730; 93990; 99152; 99153; 99285-25; C1750; C1769; J1644; J2060; J7040

== ENCOUNTER 2021-12-28 06:24 | Day surgery (SDC) | payer OTHER ==
[~2021-12-28] VITALS: Ht 167.6 cm; Wt 92.0 kg
[2021-12-28] MEDS ORDERED: CLOP75 PO (07:58)
--- NOTE | 2021-12-28 15:33 | NUR ---
ARRANGEMENTS MADE FOR DIALYSIS TOMORROW AT [facility]. PURSE STRING SUTURES REMOVED WIHTOUT COMPLICATIONS. CLOTH DOTS PLACED OVER BOTH SITES. PT GETTING DRESSED AT THIS TIME.
--- NOTE | 2021-12-28 15:47 | NUR ---
PT DRESSED PER SELF. SALINE LOCK REMOVED WITH CATHETER INTACT. DISCHARGE INSTRUCTIONS REVIEWED WITH PT, VERBALIZES UNDERSTANDING. PT WAITING FOR RIDE.
--- NOTE | 2021-12-28 15:58 | NUR ---
PT TO PRIVATE VEHICLE PER W/C WITH ONE STAFF.
== END 2021-12-28 15:55 | disposition home or self-care (01) ==
LOC: MHTC 06:24 → ORSCMMR 06:25 → MHTC 06:38
DX: T82.868A Thrombosis due to vascular prosthetic devices, implants and grafts, initial encounter (principal); I12.0 Hypertensive chronic kidney disease with stage 5 chronic kidney disease or end stage renal disease; N18.6 End stage renal disease; Y83.2 Surgical operation with anastomosis, bypass or graft as the cause of abnormal reaction of the patient, or of later complication, without mention of misadventure at the time of the procedure; Z99.2 Dependence on renal dialysis; I25.10 Atherosclerotic heart disease of native coronary artery without angina pectoris; E78.5 Hyperlipidemia, unspecified; Z95.1 Presence of aortocoronary bypass graft; Z87.891 Personal history of nicotine dependence; Z79.01 Long term (current) use of anticoagulants; Z79.82 Long term (current) use of aspirin
CPT/HCPCS: 76937; 99152; 99153; C1725; C1769; C1874; C1887; C1894; J1644; J2250; J2997; J3010; J7040; Q9967